=== PATIENT | female | born 1960 | race Caucasian/White ===

== ENCOUNTER → 2018-06-21 | Outpatient (CLI) | payer BC | LOC: COL.RAD 09:09 | DX: C50.511 Malignant neoplasm of lower-outer quadrant of right female breast (principal); R59.0 Localized enlarged lymph nodes; Z90.11 Acquired absence of right breast and nipple | CPT/HCPCS: A9503; Q9967 ==

== ENCOUNTER → 2019-04-01 | Outpatient (CLI) | payer BC | LOC: COL.RAD 10:00 | DX: Z01.818 Encounter for other preprocedural examination (principal); C50.511 Malignant neoplasm of lower-outer quadrant of right female breast; E11.9 Type 2 diabetes mellitus without complications; R91.1 Solitary pulmonary nodule; J84.10 Pulmonary fibrosis, unspecified; K80.20 Calculus of gallbladder without cholecystitis without obstruction; N20.0 Calculus of kidney; M89.9 Disorder of bone, unspecified; K76.0 Fatty (change of) liver, not elsewhere classified; Z90.11 Acquired absence of right breast and nipple; Z98.890 Other specified postprocedural states | CPT/HCPCS: A9503; Q9967 ==

== ENCOUNTER → 2020-02-10 | Outpatient (CLI) | payer BC | LOC: COL.RAD 09:30 | DX: C50.511 Malignant neoplasm of lower-outer quadrant of right female breast (principal); Z90.11 Acquired absence of right breast and nipple; C79.51 Secondary malignant neoplasm of bone | CPT/HCPCS: A9503; Q9967 ==

== ENCOUNTER → 2020-09-24 | Outpatient (CLI) | payer MEDICARE | LOC: COL.RAD 08:58 | DX: C50.511 Malignant neoplasm of lower-outer quadrant of right female breast (principal) | CPT/HCPCS: A9503 ==

== ENCOUNTER → 2021-04-03 | Outpatient (CLI) | payer MEDICARE | LOC: COL.RAD 08:47 | DX: C50.919 Malignant neoplasm of unspecified site of unspecified female breast (principal) | CPT/HCPCS: A9503 ==

== ENCOUNTER → 2022-11-19 | Outpatient (CLI) | payer MEDICARE | LOC: COL.RAD 09:15 | DX: C50.511 Malignant neoplasm of lower-outer quadrant of right female breast (principal) | CPT/HCPCS: A9503 ==

== ENCOUNTER → 2023-07-30 | Outpatient (CLI) | payer MEDICARE ==
[~2023-07-30] MED LIST: ABILIFY5 MG PO; CRESTOR5 MG PO; CYMBALTA 60MG60 MG PO; FEMARA PO; FLEXERIL5 MG PO; GLUCOPHAGE1000 MG PO; GLUCOTROL10 MG PO; LEVOXYL0.05 MG PO; LYRICA 100MG C100 M1 PO; MOBIC15 MG PO; MORPHINE 1515 MG/TAB PO; MS CONTIN 660 MG/TAB PO; REQUIP3 MG PO; TOPROL XL 50MG50 MG PO; VITAMIN B-6100 MG PO; ZESTRIL 5MG5 MG PO
== END ==
LOC: COL.RAD 15:20
DX: E04.1 Nontoxic single thyroid nodule (principal); C50.511 Malignant neoplasm of lower-outer quadrant of right female breast

== ENCOUNTER 2024-03-29 12:57 | Observation (INO) | payer MEDICARE ==
[~2024-03-29] VITALS: Ht 180.3 cm; Wt 84.5 kg
[2024-03-29 14:07] LABS: BASO # 0.1 K/mm3 (0.0-0.2); BASO % 0.5 % (0.0-2.0); GRAN # 12.2 K/mm3 (1.4-6.5); GRAN % 78.7 % (42.2-75.2); HEMOGLOBIN 14.3 g/dl (12.5-16.0); LYMPH # 2.4 K/mm3 (1.2-3.4); LYMPH % 15.6 % (20.0-51.0); MEAN CELL VOLUME 90 fl (80.0-100.0); MEAN CORPUSCULAR HEMOGLOBIN 30 pg (27-31); MEAN CORPUSCULAR HGB CONC 33 g/dl (33.0-37.0); MEAN PLATELET VOLUME 11.9 fl (7.4-10.4); MONO # 0.7 K/mm3 (0.1-0.6); MONO % 4.6 % (1.7-9.3); PLATELET COUNT 302 K/mm3 (130-400); RED BLOOD COUNT 4.79 M/mm3 (4.10-5.30); REDCELL DISTRIBUTION WIDTH-CV 13.2 % (11.5-14.5)
[2024-03-29 14:20] LABS: ALBUMIN 4.3 g/dL (3.4-4.8); CALCIUM 10.4 mg/dL (8.4-10.2); CREATININE, serum 2.22 mg/dL (0.57-1.11); POTASSIUM 4.5 mEq/L (3.5-4.5); TOTAL PROTEIN 8.7 g/dl (6.2-8.1)
[2024-03-29 14:30] LABS: COLLECTION METHOD CATHETER
[2024-03-29 14:32] LABS: BILIRUBIN,TOTAL 0.8 mg/dL (0.2-1.2)
[2024-03-29 14:39] LABS: URINE APPEARANCE CLOUDY (CLEAR/HAZY); URINE BLOOD 3+ (NEGATIVE); URINE COLOR Dark Yellow (YELLOW); URINE GLUCOSE 3+ (NEGATIVE); URINE KETONE 1+ (NEGATIVE); URINE NITRATE NEGATIVE (NEGATIVE); URINE PROTEIN(semi-quant) 3+ (NEGATIVE)
[2024-03-29 15:06] LABS: URINE RBC >50 /hpf (0-2)
[2024-03-29 15:07] LABS: URINE BACTERIA MODERATE /hpf (NONE SEEN)
[2024-03-29] MEDS ORDERED: NS 1,000 ML IV ONE (15:30)
[2024-03-29] MEDS ORDERED: Insulin Lispro (HumaLOG) SQ SCH (17:33)
[2024-03-29] MEDS ORDERED: Acetaminophen 500 MG TAB PO PRN (17:45)
[2024-03-29] MEDS ORDERED: LR 1,000 ML IV SCH (17:45)
[2024-03-29] MEDS ORDERED: Insulin Glargine-ygfn (Lantus) SQ ONE (17:45)
[2024-03-29] MEDS ORDERED: Morphine Sulfate 15 MG Immediate-Release TAB PO PRN (17:45)
[2024-03-29] MEDS ORDERED: Cyclobenzaprine 10 MG TAB PO PRN (17:45)
[2024-03-29] MEDS ORDERED: Ondansetron 4 MG/2 ML VIAL IV PRN (17:45)
--- NOTE | 2024-03-29 17:50 | NUR ---
PT ADMITTED FROM ED FOR WEAKNESS TO ROOM 315. PT STOOD AND TOOK A FEW STEPS FROM WHEELCHAIR TO BED. PT IS ON RA. PT IS AXOX4. 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 PT IS HYPERTENSIVE, PT DENIES CP, SOB, OR DIZZINESS. PT ORIENTED TO ROOM AND FLOOR. PT GIVEN CALL LIGHT AND INSTRUCTED TO ALL WTIH ALL NEEDS. JAYY MOROCHO BEDSIDE TO COMPLETE ASSESSMENT.
[2024-03-29 18:00] VITALS: BP 148/97; PULSE 68; TEMP 98
[2024-03-29] MEDS ORDERED: Dextrose 50% Water 25 GM/50 ML SYRINGE IV PRN (18:00)
[2024-03-29] MEDS ORDERED: Glucagon 1 MG VIAL IM PRN (18:00)
[2024-03-29] MEDS ORDERED: Dextrose (Glucose) 15 GM (4 x 3.75 GM) Chewable TABLET PACK PO PRN (18:00)
--- NOTE | 2024-03-29 20:00 | NUR ---
UPON SHIFT ASSESSMENT, ARAM CORONA WAS WALKING IN ROOM. SHE IS AXO X4 AND DENIES PAIN AND SOA. SHE HAS LR AT 150ML/HR RUNNING IN LT WRIST AND DENIES DYSURIA OR HEMATURIA. VS ARE WNL. PATIENT IS OF FAIR COMPLEXTION AND CHEEKS ARE FLUSHED, HOWEVER, SHE IS AFEBRILE. REPEAT LACTIC ELEVATED AND HOSPITALIST ELIU NOTIFIED-SEE NOTES. CALL LIGHT WITHIN REACH.
--- NOTE | 2024-03-29 20:43 | NUR ---
CALL PLACED TO HOSPITALISTELIU. PATIENT UA POSSIBLE FOR INFECTION, LACTIC 2.2 AND WBC 12-PATIENT AFEBRILE. TORB FOR ROCEPHINE GIVEN.
[2024-03-29 21:00] VITALS: BP_SYST 125
[2024-03-29] MEDS ORDERED: Rosuvastatin 10 MG **** subs to Atorvastatin 20 MG PO SCH (21:00)
[2024-03-29] MEDS ORDERED: ARIPiprazole 5 MG TAB PO SCH (21:00)
[2024-03-29] MEDS ORDERED: Pregabalin 50 MG CAP PO SCH (21:00)
[2024-03-29] MEDS ORDERED: Heparin 5,000 UNITS/ML 1 ML VIAL SQ SCH (21:00)
[2024-03-29] MEDS ORDERED: cefTRIAXone 1 G in Water For Injection,Sterile 10 ML IV SCH (21:00)
[2024-03-29] MEDS ORDERED: Atorvastatin 20 MG TAB PO SCH (21:00)
[2024-03-29] MEDS ORDERED: DULoxetine 60 MG CAP PO SCH (21:00)
[2024-03-29] MEDS ORDERED: rOPINIRole 1 MG TAB PO SCH ×2 (21:00)
[2024-03-29 21:20] VITALS: BP 132/78; PULSE 101; TEMP 98
[2024-03-29 23:33] VITALS: BP 125/80; PULSE 83; TEMP 98.3
[2024-03-30] VITALS (7 sets, daily range): BP systolic 120–135; BP diastolic 67–87; PULSE 82–86; TEMP 98–98.2
[2024-03-30 07:43] LABS: BASO # 0.1 K/mm3 (0.0-0.2); BASO % 0.6 % (0.0-2.0); GRAN # 7.6 K/mm3 (1.4-6.5); GRAN % 57.9 % (42.2-75.2); LYMPH # 4.8 K/mm3 (1.2-3.4); LYMPH % 36.5 % (20.0-51.0); MEAN CELL VOLUME 92 fl (80.0-100.0); MEAN CORPUSCULAR HGB CONC 32 g/dl (33.0-37.0); MEAN PLATELET VOLUME 12.4 fl (7.4-10.4); MONO # 0.6 K/mm3 (0.1-0.6); MONO % 4.6 % (1.7-9.3); PLATELET COUNT 232 K/mm3 (130-400); RED BLOOD COUNT 3.83 M/mm3 (4.10-5.30); REDCELL DISTRIBUTION WIDTH-CV 13.3 % (11.5-14.5)
[2024-03-30 08:01] LABS: CALCIUM 9.5 mg/dL (8.4-10.2); CREATININE, serum 1.96 mg/dL (0.57-1.11); MAGNESIUM 1.5 mg/dL (1.6-2.6); POTASSIUM 3.9 mEq/L (3.5-4.5)
[2024-03-30 08:09] LABS: HEMATOCRIT 35.2 % (37.0-47.0); HEMOGLOBIN 11.3 g/dl (12.5-16.0); MEAN CORPUSCULAR HEMOGLOBIN 30 pg (27-31)
[2024-03-30] MEDS ORDERED: Letrozole 2.5 MG TAB PO SCH (09:00)
[2024-03-30] MEDS ORDERED: Lisinopril 5 MG TAB PO SCH (09:00)
--- NOTE | 2024-03-30 09:00 | NUR ---
PATIENT SITTING UP AT SIDE OF BED. ALERT AND ORIENTED. VSS. SHIFT ASSESSMENT COMPLETE. PATIENT AMBULATED TO BATHROOM. GAIT STEADY. DENIES PAIN OR DISCOMFORT AT THIS TIME. ALL NEEDS MET DURING THIS VISIT. PATIENT BACK TO BED. CALL LIGHT WITHIN REACH. WILL MONITOR
[2024-03-30] MEDS ORDERED: Magnesium Sulfate 4% 50 ML IV ONE (10:45)
--- NOTE | 2024-03-30 13:41 | NUR ---
Deputy Insurance Commissioner met with patient to complete initial intake. Patient lives in [place] with her , Jamshid (ph#[phone]) and sees Dr. Gonzalez for primary care. Patient gets medications from [facility] with no difficulties and has both a cane and walker available at home. Patient reported she is independent with ADLS including driving. Patient was interested in completing a DPOA-HC, which SW provided assist with. Patient chose to designate her , Jamshid and did not want to list an alternate. SW placed copy in chart and provided copy to patient. Discharge Plan: Home
--- NOTE | 2024-03-30 13:56 | NUR ---
STUDENT NURSE DISCONTINUED IV TO LEFT FOREARM. PATIENT TOLERATED WELL. THIS RN PROVIDED PATIENT WITH DISCHARGE EDUCATION AND INSTRUCTIONS. ALL QUESTIONS ANSWERED.
--- NOTE | 2024-03-30 14:04 | NUR ---
PATIENT ESCORTED OFF UNIT. ALL BELONGINGS WITH PATIENT.
== END 2024-03-30 14:03 | disposition home or self-care (01) ==
LOC: COL.ER 12:57 → MEDICAL 17:03
PROVIDERS: Physician Assistant; ADMIT Internal Medicine
DX: I12.9 Hypertensive chronic kidney disease with stage 1 through stage 4 chronic kidney disease, or unspecified chronic kidney disease (principal); N18.9 Chronic kidney disease, unspecified; E11.22 Type 2 diabetes mellitus with diabetic chronic kidney disease; E11.40 Type 2 diabetes mellitus with diabetic neuropathy, unspecified; N17.9 Acute kidney failure, unspecified; D64.9 Anemia, unspecified; E83.42 Hypomagnesemia; E87.20 Acidosis, unspecified; E78.5 Hyperlipidemia, unspecified; E03.9 Hypothyroidism, unspecified; G25.81 Restless legs syndrome; C50.919 Malignant neoplasm of unspecified site of unspecified female breast; C79.9 Secondary malignant neoplasm of unspecified site; F32.A Depression, unspecified; Z79.890 Hormone replacement therapy; Z79.899 Other long term (current) drug therapy; Z87.891 Personal history of nicotine dependence
CPT/HCPCS: G0378; J0696; J1644; J1815; J3475; J7030; J7120

== ENCOUNTER 2024-05-23 10:43 | Inpatient (IN) | payer MEDICARE ==
[~2024-05-23] VITALS: Ht 180.3 cm; Wt 84.6 kg
[~2024-05-23 10:43] MED LIST changes: -LEVOXYL0.05 MG PO; +LEVOXYL0.1 MG PO; +LOPRESSOR 550 MG/TAB PO; -TOPROL XL 50MG50 MG PO
[2024-05-23] MEDS ORDERED: Acetaminophen 325 MG TAB PO ONE (11:15)
[2024-05-23] MEDS ORDERED: NS 1,000 ML IV SCH (11:15)
[2024-05-23 11:24] LABS: COLLECTION METHOD CATHETER
[2024-05-23 11:32] LABS: URINE APPEARANCE CLEAR (CLEAR/HAZY); URINE BLOOD 3+ (NEGATIVE); URINE COLOR YELLOW (YELLOW); URINE GLUCOSE 2+ (NEGATIVE); URINE KETONE TRACE (NEGATIVE); URINE NITRATE NEGATIVE (NEGATIVE); URINE PROTEIN(semi-quant) 4+ (NEGATIVE)
[2024-05-23 12:09] LABS: BUDDING YEAST PRESENT (NOT PRESENT); URINE BACTERIA MODERATE /hpf (NONE SEEN); URINE RBC >50 /hpf (0-2)
[2024-05-23 12:26] LABS: BASO % 0.2 % (0.0-2.0); GRAN # 11.4 K/mm3 (1.4-6.5); GRAN % 86.8 % (42.2-75.2); LYMPH # 1.1 K/mm3 (1.2-3.4); LYMPH % 8.7 % (20.0-51.0); MEAN CELL VOLUME 88 fl (80.0-100.0); MEAN CORPUSCULAR HGB CONC 34 g/dl (33.0-37.0); MEAN PLATELET VOLUME 12.1 fl (7.4-10.4); MONO # 0.4 K/mm3 (0.1-0.6); MONO % 3.2 % (1.7-9.3); PLATELET COUNT 90 K/mm3 (130-400); RED BLOOD COUNT 3.13 M/mm3 (4.10-5.30); REDCELL DISTRIBUTION WIDTH-CV 14.1 % (11.5-14.5)
[2024-05-23 12:28] LABS: HEMATOCRIT 27.6 % (37.0-47.0); HEMOGLOBIN 9.3 g/dl (12.5-16.0); MEAN CORPUSCULAR HEMOGLOBIN 30 pg (27-31)
[2024-05-23 12:41] LABS: ALBUMIN 3.2 g/dL (3.4-4.8); BILIRUBIN,TOTAL 0.9 mg/dL (0.2-1.2); CREATININE, serum 2.18 mg/dL (0.57-1.11); POTASSIUM 3.5 mEq/L (3.5-4.5); TOTAL PROTEIN 6.8 g/dl (6.2-8.1)
[2024-05-23] MEDS ORDERED: LORazepam 2 MG/ML 1 ML VIAL IV ONE ×2 (14:15→19:45)
[2024-05-23] MEDS ORDERED: cefTRIAXone 1 G in Water For Injection,Sterile 10 ML IV ONE (14:30)
[2024-05-23] MEDS ORDERED: LR 1,000 ML IV SCH (15:45)
[2024-05-23] MEDS ORDERED: Polyethylene Glycol 3350 17 GM PDS PO PRN (15:45)
[2024-05-23] MEDS ORDERED: Ondansetron 4 MG/2 ML VIAL IV PRN (15:45)
[2024-05-23] MEDS ORDERED: Docusate Sodium 100 MG CAP PO PRN (15:45)
[2024-05-23] MEDS ORDERED: Acetaminophen 325 MG TAB PO PRN (15:45)
[2024-05-23 16:00] VITALS: BP 168/78; PULSE 77; TEMP 98.5
[2024-05-23] MEDS ORDERED: Dextrose 50% Water 25 GM/50 ML SYRINGE IV PRN (16:30)
[2024-05-23] MEDS ORDERED: Dextrose (Glucose) 15 GM (4 x 3.75 GM) Chewable TABLET PACK PO PRN (16:30)
[2024-05-23] MEDS ORDERED: Glucagon 1 MG VIAL IM PRN (16:30)
--- NOTE | 2024-05-23 16:58 | NUR ---
Patient arrived to the surgical unit room 32, Alert and oriented x2. Able to answer some questions. States some abdominal pain. Fall precautions in place. Assessment intake completed.
[2024-05-23 17:00] VITALS: BP_SYST 168
[2024-05-23] MEDS ORDERED: Insulin Lispro (HumaLOG) SQ SCH (17:00)
[2024-05-23] MEDS ORDERED: hydrALAZINE 20 MG/ML 1 ML VIAL IV PRN (17:15)
[2024-05-23] MEDS ORDERED: Fluconazole 100 MG TAB PO ONE (17:15)
--- NOTE | 2024-05-23 17:26 | NUR ---
Swallow evaluation done with no evident problems.
--- NOTE | 2024-05-23 18:45 | NUR ---
Bedside report received from BAILEE Herron. Pt awake in bed attempting to get out of bed. BAILEE Herron assisted pt to bathroom and back to bed with no complications. Pt pulled IV from LUE out, catheter tip intact. Pt has no request at this time. Call light within reach and fall precautions in place.
--- NOTE | 2024-05-23 19:00 | NUR ---
Pt attempting to get out of bed multiple times stating she has to urinate. Pt appears to be restless with some anxiety at this time. Hospitalist notified by phone of pt attempting to get out of bed multiple times and pulling IV out. Hospitalist gave verbal order over phone to administer one time dose of Ativan 2 mg IV and to insert german catheter at this time. Order read back and confirmed by hospitalist.
[2024-05-23 19:53] VITALS: BP 169/81; PULSE 101; TEMP 99.8
[2024-05-23 20:26] VITALS: BP 179/83; PULSE 93
[2024-05-23] MEDS ORDERED: rOPINIRole 1 MG TAB PO SCH (21:00)
[2024-05-23] MEDS ORDERED: DULoxetine 60 MG CAP PO SCH (21:00)
[2024-05-23] MEDS ORDERED: ARIPiprazole 5 MG TAB PO SCH (21:00)
[2024-05-23 21:27] VITALS: BP_SYST 179
--- NOTE | 2024-05-23 21:33 | NUR ---
Pt awake in bed restless with leg spasms. Shift assessment completed. VSS with elevated BP in 170s/90s. PRN Hydralazine administered as ordered. Temperature noted to be 99.8, PRN Tylenol administered as ordered. 16 Fr german catheter inserted with sterile technique. Pt tolerated well with no complaints. Hazy yellow colored urine emptying into catheter bag with no complications. Redness/Excoriation noted to pannus. Mepilex to Lt foot underneath great toe. Mepilex removed and scaling/flaking wound covered with scabbing noted. Dressing applied to wound, natasha wrap in place on LLE. 20 IV inserted into Rt wrist x1 attempt with no complication. Pt tolerated well with no complaints. IVF infusing into Rt wrist as ordered with no complications. Fall precautions in place. Call light within reach.
--- NOTE | 2024-05-23 21:35 | NUR ---
Pt continues to remain restless in bed. PCT Tracie attempted to take pt for wlak in hallway but pt wanted to go back to bed following walk. Hospitalist notified by phone of pt restlessness and gave TORB for 2 mg Haladol IV once now. Order read back and confirmed by hospitalist.
[2024-05-23] MEDS ORDERED: Haloperidol Lactate 5 MG/ML VIAL IV ONE (21:45)
[2024-05-23 22:39] VITALS: BP 167/84; PULSE 113; TEMP 102
[2024-05-23] MEDS ORDERED: Ibuprofen 400 MG TAB PO ONE (22:45)
--- NOTE | 2024-05-23 23:00 | NUR ---
After administration of IV Zosyn this nurse noted redness to pt chin and jawline. Pt was hot to touch. Charge nurse Candi at bedside to assess pt with this nurse. Vital signs obtained and temperature noted to be 102.0. BP elevated in 160s/80s. Hospitalist Manoj notified by phone and gave TORB to administer one time dose of PO Motrin 400 mg and Labetelol 20 mg IV Q6HR PRN for SBP >160. This nurse reported redness to pt face following IV Zosyn and hospitalist Manoj instructed this nurse to continue zosyn as ordered at this time.
[2024-05-24] VITALS (16 sets, daily range): BP systolic 147–178; BP diastolic 78–88; PULSE 86–108; TEMP 98.2–100.1
--- NOTE | 2024-05-24 00:20 | NUR ---
This nurse at bedside with pt and notes spasms of BLE. Hospitalist Manoj notified by phone of pt restelessness and leg spasms. Hospitalist instructed [facility] nurse to resume home medication Flexril and Lyrica per med rec.
[2024-05-24] MEDS ORDERED: Pregabalin 50 MG CAP PO SCH (00:32)
[2024-05-24] MEDS ORDERED: Cyclobenzaprine 10 MG TAB PO PRN (00:45)
--- NOTE | 2024-05-24 02:28 | NUR ---
Pt remains awake in bed, restless. Pt pulling at german catheter tubing. This nurse at bedside to reorient pt.
--- NOTE | 2024-05-24 03:00 | NUR ---
Pt continues to pull at medical lines at this time. Hospitalist Manoj notified by phone and instructed this nurse to apply non-violent mitten restraints to bilateral hands. TORB order for mitten restraint. Mitten applied to bilateral hands, education provided to pt.
[2024-05-24 06:52] LABS: BASO % 0.3 % (0.0-2.0); EOS # 0.1 K/mm3 (0.0-0.7); EOS % 0.8 % (0.0-4.0); GRAN # 10.6 K/mm3 (1.4-6.5); GRAN % 88.2 % (42.2-75.2); LYMPH # 0.8 K/mm3 (1.2-3.4); MEAN CELL VOLUME 85 fl (80.0-100.0); MEAN CORPUSCULAR HGB CONC 36 g/dl (33.0-37.0); MEAN PLATELET VOLUME 12.2 fl (7.4-10.4); MONO # 0.4 K/mm3 (0.1-0.6); PLATELET COUNT 86 K/mm3 (130-400); RED BLOOD COUNT 3.16 M/mm3 (4.10-5.30)
[2024-05-24 06:56] LABS: HEMOGLOBIN 9.7 g/dl (12.5-16.0); MEAN CORPUSCULAR HEMOGLOBIN 31 pg (27-31)
[2024-05-24 07:07] LABS: CALCIUM 8.4 mg/dL (8.4-10.2); CREATININE, serum 2.09 mg/dL (0.57-1.11); POTASSIUM 3.4 mEq/L (3.5-4.5)
[2024-05-24] MEDS ORDERED: Heparin 5,000 UNITS/ML 1 ML VIAL SQ SCH (08:00)
[2024-05-24] MEDS ORDERED: Letrozole 2.5 MG TAB PO SCH (09:00)
--- NOTE | 2024-05-24 09:00 | NUR ---
SHIFT ASSESSMENT COMPLETE. VSS. PATIENT RESTING IN BED, CALM AT THIS TIME. PATIENT HAD A EVENTFUL NIGHT PULLING AT CATHETER AND IV LINES. PATIENT CURRENTLY HAS MITTS ON PER HOSPITALIST ORDERS. IV FLUIDS DC'D. ALL MORNNING MEDS GIVEN ORDERED. BED ALARM ON AND CALL LIGHT IN REACH. THIS NURSE IS DOEING HOURLY CHECKS ON PATIENT.
[2024-05-24] MEDS ORDERED: LORazepam 0.5 MG TAB PO ONE (10:15)
--- NOTE | 2024-05-24 12:52 | NUR ---
Research Instrumentation Technician spoke with RN, July who advised patient is only oriented to self. SW also observed patient is wearing mitts. SW attempted to contact patient's , Jamshid twice and left a message requesting a call back.
[2024-05-24] MEDS ORDERED: *Potassium Replacement Protocol MC SCH (13:15)
[2024-05-24] MEDS ORDERED: GLUCOTROL XL10 MG PO (13:56)
[2024-05-24] MEDS ORDERED: PRINIVIL5 MG PO (13:56)
[2024-05-24] MEDS ORDERED: MOBIC15 MG PO (13:56)
[2024-05-24] MEDS ORDERED: LR 1,000 ML IV SCH (16:00)
--- NOTE | 2024-05-24 16:56 | NUR ---
residential worker attempted to reach patient's , Jamshid, no answer. SW left voicemail. SW attended multidisciplinary team meeting to discuss discharge plan. Patient is not currently medically stable. SW explained she was still working on contacting the to complete the intake as patient is confused at this time. NICK will be following up tomorrow.
--- NOTE | 2024-05-24 21:33 | NUR ---
Patient to OR via bed with BAILEE Membreno.
[2024-05-24] MEDS ORDERED: Lidocaine PF 2% (20 MG/ML) 5 ML VIAL ONE (21:49)
[2024-05-24] MEDS ORDERED: fentaNYL 50 MCG/ML 2 ML VIAL ONE (21:51)
[2024-05-24] MEDS ORDERED: NS 10 ML IV ONE (21:51)
[2024-05-24] MEDS ORDERED: Glycopyrrolate 0.2 MG/ML 1 ML VIAL ONE (21:51)
[2024-05-24] MEDS ORDERED: dexAMETHasone 10 MG/ML VIAL ONE (21:51)
[2024-05-24] MEDS ORDERED: Ondansetron 4 MG/2 ML VIAL ONE (21:51)
[2024-05-24] MEDS ORDERED: Ketorolac 30 MG/ML VIAL ONE (21:51)
[2024-05-24] MEDS ORDERED: Rocuronium 50 MG/5 ML Multi-Dose VIAL ONE ×2 (22:03→22:05)
[2024-05-24] MEDS ORDERED: Succinylcholine PF 200 MG/10 ML SYRINGE IV ONE (22:03)
[2024-05-24] MEDS ORDERED: Iohexol 300 - 10 ML VIAL URETER-R ONE (22:18)
[2024-05-24] MEDS ORDERED: Lidocaine 2% (20 MG/ML) 20 ML UROJET UR ONE (22:35)
--- NOTE | 2024-05-24 23:30 | NUR ---
Patient arrived to room 326 via bed from PACU with BAILEE Membreno. Oriented to room. Post op vitals initiated and stable-slightly elevated blood pressure but no need for intervention. Patient is very groggy. Keenan cath with light pink output. 2230 zosyn hung at this time. Denies pain/nausea/shortness of breath. Repositioned in bed with pillow support. Denies current needs. Call light in reach/bed alarm on. WIll monitor.
[2024-05-25] VITALS (17 sets, daily range): BP systolic 143–172; BP diastolic 67–88; PULSE 86–95; TEMP 98–98.8
--- NOTE | 2024-05-25 01:39 | NUR ---
Patient more alert and awake at this time. Provided with clear liquid diet-tolerated jello and juice without N/V. Denies pain at this time. Keenan cath with light pink output. Call light in reach/bed alarm on. Will monitor.
--- NOTE | 2024-05-25 04:40 | NUR ---
Patient c/o back pain/spasms-flexeril/tylenol given per dr order. Urine output WNL-pink to reddish to german cath. Seems to be more A&O. Right wrist IV with LR@75ml/hr. Has only tolerated a small amount of clears since coming to the floor late last NOC. Denies current questions/concerns. Call light in reach. Will monitor.
--- NOTE | 2024-05-25 06:45 | NUR ---
Bedside report given to BAILEE Coleman.
[2024-05-25 07:06] LABS: MEAN CELL VOLUME 86 fl (80.0-100.0); MEAN CORPUSCULAR HGB CONC 34 g/dl (33.0-37.0); MEAN PLATELET VOLUME 12.1 fl (7.4-10.4); PLATELET COUNT 79 K/mm3 (130-400); RED BLOOD COUNT 3.11 M/mm3 (4.10-5.30); REDCELL DISTRIBUTION WIDTH-CV 14.3 % (11.5-14.5)
[2024-05-25 07:07] LABS: HEMATOCRIT 26.8 % (37.0-47.0); HEMOGLOBIN 9.2 g/dl (12.5-16.0); MEAN CORPUSCULAR HEMOGLOBIN 30 pg (27-31)
[2024-05-25 07:39] LABS: BAND 12 % (0-10); LYMPHOCYTE 9 % (20.0-51.0); NEUTROPHILS 79 % (42.0-75.2); PLATELET ESTIMATE DECREASED (NORMAL)
--- NOTE | 2024-05-25 10:00 | NUR ---
Pt. sitting up in bed. Pt. is a&OX3, assessment complete. IV to rt. wrist patent. Pt. denies pain or other needs.
--- NOTE | 2024-05-25 13:10 | NUR ---
Billiard Table Repairer located correct number for Jamshid (#[phone]) and contacted him to discuss discharge planning. Patient lives in [place] and sees Dr. Gonzalez for primary care. Patient gets her medications from [facility] and has both a walker and cane available at home. Jamshid stated patient is a private person but as far as he knows, she does not have any issues with ADLS. Jamshid stated patient is not confused at baseline but does have a history of UTI's and that can sometimes cause boughts of confusion. Patient has DPOA-HC in chart designating Jamshid. SW discussed PT/OT recommendation for Home Health and Jamshid is in agreement. SW me with patient briefly to discuss HH services and she is agreeable. SW left Medicare.gov list of HH agencies for her to review. Discharge Plan: Home with and Home Health
--- NOTE | 2024-05-25 16:01 | NUR ---
Collar Setter was contacted by patient's , Stu who requested a referral be sent to [facility]. NICK faxed referral to Pete at [facility].
--- NOTE | 2024-05-25 16:22 | NUR ---
alcoholism worker attended multidisciplinary team meeting to discuss discharge plan. When patient is medically ready for discharge, the plan is to return home with home health. Everyone is in agreement with this plan. Discharge plan: Home with [facility]
--- NOTE | 2024-05-25 20:57 | NUR ---
Patient is sitting up in chair, eating dinner, A&Ox4, previously confused. Patient reports some abdominal pain 2/10, aching. Patient has a right 20G IV, dressing noted to be intact, but moisture under the dresssing is present from it leaking. Patient offered a new IV but refused for now. Patient has LR running at 75mL/hr. Indwelling german catheter present with red, clear urine present. Patient educated to call when she is ready to go to bed. Chair locked, call burns within reach.
[2024-05-25] MEDS ORDERED: Melatonin 3 MG TAB PO SCH (21:00)
--- NOTE | 2024-05-25 22:48 | NUR ---
Patient IV to right wrist infiltrated. DCd at this time-cath intact. Attempts made to place x2 by this nurse, x1 by Alla RN and x1 by BAILEE Gastelum with no luck. Patient has a restricted extremity to the right due to mastectomy. Spoke with JANIS Aranda as patient is now refusing any more attempts. New orders received to hold fluids/zosyn until tomorrow AM for re-evaluation as patient states she is suppose to be discharged.
[2024-05-25 23:26] LABS: CALCIUM 8.4 mg/dL (8.4-10.2); CREATININE, serum 2.24 mg/dL (0.57-1.11); POTASSIUM 3.6 mEq/L (3.5-4.5)
[2024-05-26] VITALS (10 sets, daily range): BP systolic 116–162; BP diastolic 59–85; PULSE 67–96; TEMP 98–99.1
[2024-05-26 06:26] LABS: BASO % 0.2 % (0.0-2.0); GRAN # 11.9 K/mm3 (1.4-6.5); GRAN % 81.4 % (42.2-75.2); LYMPH # 1.8 K/mm3 (1.2-3.4); MEAN CELL VOLUME 87 fl (80.0-100.0); MEAN CORPUSCULAR HGB CONC 34 g/dl (33.0-37.0); MEAN PLATELET VOLUME 12.4 fl (7.4-10.4); MONO # 0.8 K/mm3 (0.1-0.6); MONO % 5.5 % (1.7-9.3); PLATELET COUNT 114 K/mm3 (130-400); RED BLOOD COUNT 2.85 M/mm3 (4.10-5.30); REDCELL DISTRIBUTION WIDTH-CV 14.5 % (11.5-14.5)
[2024-05-26 06:30] LABS: HEMATOCRIT 24.9 % (37.0-47.0); HEMOGLOBIN 8.4 g/dl (12.5-16.0); MEAN CORPUSCULAR HEMOGLOBIN 29 pg (27-31)
[2024-05-26 06:41] LABS: CALCIUM 8.5 mg/dL (8.4-10.2); CREATININE, serum 2.2 mg/dL (0.57-1.11)
[2024-05-26 06:52] LABS: POTASSIUM 2.8 mEq/L (3.5-4.5)
[2024-05-26] MEDS ORDERED: Potassium Bicarbonate/Citrate 20 MEQ Effervescent TAB PO ONE (08:15)
[2024-05-26] MEDS ORDERED: Metoprolol Tartrate 50 MG TAB PO SCH (09:57)
[2024-05-26] MEDS ORDERED: Lisinopril 5 MG TAB PO SCH (09:57)
--- NOTE | 2024-05-26 11:58 | NUR ---
SHIFT ASSESSMENT COMPLETE. BP ELEVATED THIS AM, MEDS GIVEN ORDERED SEE EMAR. DRESSING PLACED TO LEFT BOTTOM OF FOOT FOR WOUND PATIENT CAME IN WITH. CDI WOUND NOT DRIANING. PATIENT AMBULATED TO CHAIR AND THEN BACK TO BED THIS A. ALL MORNING MEDS GIVEN ORDERED. BED ALARM ON AND CALL LIGHT IN REACH
--- NOTE | 2024-05-26 12:30 | NUR ---
NICK StudentRenetta, faxed clinical updates to [facility]. Discharge plan: Home with home health - [facility]
--- NOTE | 2024-05-26 13:30 | NUR ---
Director Trial met with patient to present and review IM form. Patient verbalized understanding and stated she used to work for [employer]. Patient gave verbal consent as signature as she is in contact isolation. SW placed form in chart and provided copy to patient. Discharge Plan: Home with [facility]
--- NOTE | 2024-05-26 15:48 | NUR ---
building construction ironworker attended multidisciplinary team meeting. Everyone is in agreement with patient returning home with home health. Patient would like to discharge today, it is pending on patient's cultures. Discharge plan: Home with [facility]
[2024-05-26] MEDS ORDERED: Potassium Bicarbonate/Citrate 20 MEQ Effervescent TAB PO SCH (16:15)
--- NOTE | 2024-05-26 22:06 | NUR ---
PATIENT SITTING UP IN CHAIR, A&OX4. PATIENT DENIES ANY PAIN AT THIS TIME. IV D/C'D LAST NIGHT AND PATIENT IS TOLERATING PO MEDS. PATIENT EDUCATED TO CALL IF SHE NEEDS TO GET UP OR GO TO THE BATHROOM. PATIENT VERBALIZED UNDERSTANDING, BED LOWERED AND LOCKED, CALL HINES WITHIN REACH.
[2024-05-27] VITALS (7 sets, daily range): BP systolic 97–124; BP diastolic 54–68; PULSE 70–83; TEMP 97.7–98.4
[2024-05-27] MEDS ORDERED: Potassium Bicarbonate/Citrate 20 MEQ Effervescent TAB PO ONE (01:00)
[2024-05-27 07:52] LABS: MEAN CELL VOLUME 88 fl (80.0-100.0); MEAN CORPUSCULAR HGB CONC 34 g/dl (33.0-37.0); MEAN PLATELET VOLUME 13.1 fl (7.4-10.4); PLATELET COUNT 79 K/mm3 (130-400); RED BLOOD COUNT 2.76 M/mm3 (4.10-5.30); REDCELL DISTRIBUTION WIDTH-CV 15.2 % (11.5-14.5)
[2024-05-27 07:57] LABS: HEMATOCRIT 24.2 % (37.0-47.0); HEMOGLOBIN 8.2 g/dl (12.5-16.0); MEAN CORPUSCULAR HEMOGLOBIN 30 pg (27-31)
[2024-05-27 08:09] LABS: CALCIUM 7.7 mg/dL (8.4-10.2); CREATININE, serum 2.26 mg/dL (0.57-1.11); POTASSIUM 3.7 mEq/L (3.5-4.5)
[2024-05-27] MEDS ORDERED: CEPHALEXIN500 M1 PO (08:36)
--- NOTE | 2024-05-27 11:13 | NUR ---
Social work student sent updates to [facility].
--- NOTE | 2024-05-27 14:04 | NUR ---
nutrition services worker faxed discharge orders to [facility]. Discharge plan: Home with [facility]
== END 2024-05-27 13:05 | disposition home or self-care (01) | DRG 871 ==
LOC: COL.ER 10:43 → SURG 15:39
PROVIDERS: Internal Medicine; Physician Assistant; Urology; ADMIT Internal Medicine
PROC: 0T7D8DZ Dilation of Urethra with Intraluminal Device, Via Natural or Artificial Opening Endoscopic (ICD-10-PCS; principal; 2024-05-24 22:15)
PROC: BT1D1ZZ Fluoroscopy of Right Kidney, Ureter and Bladder using Low Osmolar Contrast (ICD-10-PCS; 2024-05-24 22:15)
DX: A41.9 Sepsis, unspecified organism (principal); G92.8 Other toxic encephalopathy; N17.9 Acute kidney failure, unspecified; K65.4 Sclerosing mesenteritis; N39.0 Urinary tract infection, site not specified; N20.1 Calculus of ureter; F32.A Depression, unspecified; R65.20 Severe sepsis without septic shock; E78.5 Hyperlipidemia, unspecified; N18.9 Chronic kidney disease, unspecified; E11.22 Type 2 diabetes mellitus with diabetic chronic kidney disease; M79.3 Panniculitis, unspecified; E03.9 Hypothyroidism, unspecified; I12.9 Hypertensive chronic kidney disease with stage 1 through stage 4 chronic kidney disease, or unspecified chronic kidney disease; L84 Corns and callosities; G25.81 Restless legs syndrome; E11.40 Type 2 diabetes mellitus with diabetic neuropathy, unspecified; Z79.84 Long term (current) use of oral hypoglycemic drugs; Z79.899 Other long term (current) drug therapy; Z85.3 Personal history of malignant neoplasm of breast; Z79.890 Hormone replacement therapy; Z90.11 Acquired absence of right breast and nipple
CPT/HCPCS: A4314; C1769; C2617; J0360; J0690; J0696; J1100; J1630; J1644; J1815; J1885; J1920; J2060; J2405; J2543; J2704; J3010; J7030; J7120; Q9967